=== PATIENT | male | born 1980 | race Caucasian/White ===

== ENCOUNTER 2018-03-20 20:20 | Emergency (ER) | payer OTHER, SELFPAY ==
[2018-03-20 20:25] VITALS: BP 114/81; PULSE 87; RESP 18; TEMP 37; O2SAT 100; BMI 19.8
[2018-03-20] MEDS: SODIUM CHLORIDE 0.9% 1,000 ML 1000 ML IV (20:43)
[2018-03-20 20:46] VITALS: BP 82/45; PULSE 55; RESP 14; O2SAT 99
[2018-03-20 20:58] LABS: Hematocrit 37.3 % (41-53); Hemoglobin 13.3 g/dL (13.5-17.5); Mean Corpuscular HGB Conc 35.5 % (30-36); Mean Corpuscular Hemoglobin 31.7 PG (26-34); Mean Corpuscular Volume 89.2 fL (80-100); Platelet Count 274 X10^3/uL (150-400); Red Blood Cell Count 4.18 X10^6/uL (4.5-5.9); White Blood Cell Count 9.6 X10^3/uL (4.5-11.0)
[2018-03-20 21:03] LABS: Alanine Aminotransferase 79 IU/L (21-72); Albumin 4.8 g/dL (3.5-5.0); Albumin Globulin Ratio 1.2 (1.0-2.8); Alkaline Phosphatase 79 U/L (38-126); Aspartate Aminotransferase 62 IU/L (17-59); BUN Creatinine Ratio 31.1 (6-22); Bilirubin Total 0.7 mg/dL (0.2-1.3); Calcium 9.1 mg/dL (8.4-10.2); Estimated Glomerular Filt Rate > 60.0 mL/min (>60); Globulin 3.9 g/dL (1.7-4.1); Glucose 168 mg/dL (70-100); Sodium 132 mmol/L (137-145); Total Protein 8.7 g/dL (6.3-8.2)
[2018-03-20 21:04] LABS: HEMOLYSIS 105 (0-50)
[2018-03-20 21:05] LABS: Potassium 3.1 mmol/L (3.4-5.1)
[2018-03-20 21:07] VITALS: BP 103/62; PULSE 72; RESP 14; O2SAT 99
[2018-03-20 21:33] LABS: Neutrophils Absolute Manual 7200 /uL (3000-5900); RBC Morphology Normal Morphology; Total Cells Counted 100
[2018-03-20 22:05] VITALS: BP 106/67; PULSE 72; RESP 14; O2SAT 100
--- NOTE | 2018-03-20 22:15 | ED_ITS ---
HPI - Weakness General Chief complaint: Weakness Stated complaint: SENT FROM MD FOR ABNORMAL LABS Time Seen by Provider: 03/20/18 21:32 Source: patient, RN notes reviewed and old records reviewed Mode of arrival: ambulatory Limitations: no limitations History of Present Illness HPI Narrative: Patient is a 37-year-old male sent in by his primary care provider. He had routine blood work done today potassium was 2.9. He has had night sweats ongoing for a number of months. He has passed out occasionally. Has severe anxiety and alcoholism as well. Today he did not feel very good on his way to his primary care provider office. He was getting out of the car he fell lightheaded and passed out. It was a brief episode no seizure activity. 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 He had weight loss about 2 years ago on and has not been able to regain his weight is but not any recent weight loss. MD Complaint: generalized weakness Related Data Allergies Allergy/AdvReac Type Severity Reaction Status Date / Time No Known Drug Allergies Allergy Verified 03/20/18 20:29 Review of Systems Review of Systems All systems reviewed & are unremarkable except as noted in HPI and below Constitutional Denies fatigue, Denies fever(s), Denies frequent falls, Reports night sweats, Reports weakness, Denies weight gain and Reports weight loss (2 years ago not since then) Eyes Denies change in vision, Denies eye discharge, Denies irritation and Denies loss of vision ENT Ears, Nose, Mouth, and Throat: Denies change in voice, Denies neck pain and Denies sore throat Cardiovascular Reports as per HPI, Denies chest pain, Reports syncope (Presyncope), Denies pedal edema, Denies irregular heart rhythm, Reports lightheadedness, Denies dyspnea, Denies dyspnea on exertion and Reports other Respiratory Denies cough, Denies dyspnea, Denies dyspnea on exertion and Denies wheezing Gastrointestinal Gastrointestinal: Denies abdominal pain, Denies change in bowel habits, Denies diarrhea, Denies nausea and Denies vomiting Musculoskeletal Denies neck pain Integumentary/Breasts Denies pruritus, Denies erythema, Denies rash and Denies wounds Neurologic Reports syncope (Presyncope), Denies frequent falls, Denies loss of vision, Denies seizure-like activity and Reports weakness Endocrine Denies fatigue Allergic/Immunologic Denies wheezing [facility] Medical History Alcoholism (Acute) Social History Smoking Status: Never smoker alcohol intake: former substance use type: does not use Exam Initial Vital Signs Initial Vital Signs: Vital Signs Temperature 98.6 F 03/20/18 20:25 Pulse Rate 87 03/20/18 20:25 Respiratory Rate 18 03/20/18 20:25 Blood Pressure 114/81 H 03/20/18 20:25 Pulse Oximetry 100 03/20/18 20:25 Const General: cooperative and well developed Nutritional Appearance: thin Orientation: alert, awake, oriented x3 and not confused Neck Neck: normal visual inspection, trachea midline, No lymphadenopathy, No midline deformity and No JVD Lymphatic: No lymphedema Resp Effort & Inspection: normal respiratory effort, able to speak in complete sentences, no respiratory distress and no use of accessory muscles Auscultation: clear to auscultation bilaterally, no rales, no rhonchi and no wheezes Cardio Rate: regular rate Rhythm: regular rhythm Heart Sounds: no click, no gallops, no murmurs and no rubs Pulses: normal peripheral pulses GI Inspection: non-distended Palpation: soft, no hepatosplenomegaly, No guarding, No pulsatile mass and No tender Auscultation: normal bowel sounds Skin General: no rashes or lesions noted, No jaundice and No petechiae Course Orders Ordered: ED Orders 03/20/18 20:30 CBC manual diff [Complete Blood Count MAN DIFF] Stat Comprehensive Metabolic Panel Stat 03/20/18 22:05 EKG-12 Lead Stat Discontinued Medications Sodium Chloride (Normal Saline 0.9%) 1,000 mls @ 1,000 mls/hr IV BOLUS ONE Stop: 03/20/18 21:42 Last Infusion: 03/20/18 21:47 Dose: 0 mls/hr Admin: 03/20/18 20:43 Dose: 1,000 mls/hr Potassium Chloride (Klor-Con M20) 40 meq PO NOW ONE Stop: 03/20/18 22:06 Last Admin: 03/20/18 22:17 Dose: 40 meq Vital Signs - 8 hr 03/20/18 22:05 03/20/18 22:35 Temperature 98.6 F Pulse Rate 72 72 Respiratory Rate 14 14 Blood Pressure 114/81 H Blood Pressure [Left Arm] 106/67 Pulse Oximetry 100 100 MDM - Weakness Differential Diagnosis Differential diagnosis: Likely anemia, hypoglycemia, hypothyroidism and dehydration Medical Records Attestation: I reviewed the patient's medical records. Lab Data Attestation: I reviewed the patient's lab results. Result diagrams: 03/20/18 20:30 03/20/18 20:30 Lab Results 03/20/18 03/20/18 Range/Units 20:30 20:30 WBC 9.6 (4.5-11.0) X10^3/uL RBC 4.18 L (4.5-5.9) X10^6/uL Hgb 13.3 L (13.5-17.5) g/dL Hct 37.3 L (41-53) % MCV 89.2 (80-100) fL MCH 31.7 (26-34) PG MCHC 35.5 (30-36) % RDW 14.0 (11.6-14.8) % Plt Count 274 (150-400) X10^3/uL Total Counted 100 Seg Neutrophils % 74.0 H (38-70) % Band Neutrophils % 1.0 L (3-7) % Lymphocytes % (Manual) 21.0 L (25-45) % Monocytes % (Manual) 4.0 (2-11) % Neutrophils # (Manual) 7200 H (8356-0927) /uL RBC Morphology Normal morphology Sodium 132 L (137-145) mmol/L Potassium 3.1 L (3.4-5.1) mmol/L Chloride 80.0 L (98-107) mmol/L Carbon Dioxide 39.0 H (22-32) mmol/L BUN 28.0 H (9-20) mg/dL Creatinine 0.90 (0.66-1.25) mg/dL Estimated GFR > 60.0 (>60) mL/min BUN/Creatinine Ratio 31.1 H (6-22) Glucose 168 H (70-100) mg/dL Calcium 9.1 (8.4-10.2) mg/dL Total Bilirubin 0.7 (0.2-1.3) mg/dL AST 62 H (17-59) IU/L ALT 79 H (21-72) IU/L Alkaline Phosphatase 79 (38-126) U/L Total Protein 8.7 H (6.3-8.2) g/dL Albumin 4.8 (3.5-5.0) g/dL Globulin 3.9 (1.7-4.1) g/dL Albumin/Globulin Ratio 1.2 (1.0-2.8) ECG Data Attestation: I personally reviewed and interpreted this ECG as follows: Prior ECG tracings: available for review Interpretation: Normal sinus rhythm rate 74 no acute ischemia normal intervals MDM Narrative Medical decision making narrative: Patient has been having ongoing problems it sounds of for number of years. He has a an alcohol abuse problem it sounds as though he gets sober and relapses. He has been sober for the last 6 days. He denies any withdrawal symptoms. He has previously had grand mal seizures which she has not had. He is mildly hypokalemia. He had a presyncopal episode today likely from dehydration. Her does not sound as though he is drinking on a fluid and he is having night sweats. Recommend further testing with his primary care provider. Also recommended Holter monitor. He is feeling much better after IV fluids and potassium Discharge Plan Departure Patient Disposition: Home, Self-Care Clinical Impression: Hypokalemia, Fainting Discharge Date/Time: 03/20/18 22:41 Interventions: ED Discharge Assessment Last Done: 03/20/18 22:40 Instructions: DI for Syncope in Adults (Fainting) Activity Restrictions/Additional Instructions: *You have been diagnosed with the low potassium, fainting *What to do: May require Holter monitor and further outpatient studies, recommend drinking Gatorade or Gatorade like some cysts throughout the day *Take medications as directed *Follow up with your primary care provider in 2-3 days *Return to ER if you should have or any new, worsening or concerning symptoms
[2018-03-20] MEDS: POTASSIUM CHLORIDE 20 MEQ TAB 40 MEQ PO (22:17)
[2018-03-20 22:35] VITALS: BP 114/81; PULSE 72; RESP 14; TEMP 37; O2SAT 100; BMI 19.8
== END 2018-03-20 22:41 | disposition home or self-care (01) ==
PROVIDERS: Emergency Provider Emergency Medicine
DX: E87.6 Hypokalemia (principal); R55 Syncope and collapse
CPT/HCPCS: 36591; 80053; 81003; 85025; 93005; 96360; 99283; 99284